=== PATIENT | male | born 1945 | race Caucasian/White ===

== ENCOUNTER → 2021-09-03 | Outpatient (CLI) | payer MEDICARE, OTHER ==
[~2021-09-03] MED LIST: ASPIRIN 32325 MG/TAB PO; TOPROL XL 50MG50 MG PO
== END ==
LOC: COL.RAD 13:21
DX: Z98.890 Other specified postprocedural states (principal); C34.11 Malignant neoplasm of upper lobe, right bronchus or lung
CPT/HCPCS: Q9967

== ENCOUNTER → 2021-12-05 | Outpatient (CLI) | payer MEDICARE, OTHER | LOC: COL.RAD 12:07 | DX: C34.90 Malignant neoplasm of unspecified part of unspecified bronchus or lung (principal); Z98.890 Other specified postprocedural states | CPT/HCPCS: Q9967 ==

== ENCOUNTER 2022-08-23 14:58 | Inpatient (IN) | payer MEDICARE, OTHER ==
[~2022-08-23] VITALS: Ht 185.4 cm; Wt 61.4 kg
[2022-08-23] VITALS (65 sets, daily range): BP systolic 67–121; BP diastolic 34–68; PULSE 31–97; TEMP 97.7–98.7; O2SAT 89–100
[2022-08-23 15:32] LABS: MEAN CELL VOLUME 105 fl (80.0-100.0); MEAN CORPUSCULAR HGB CONC 33 g/dl (33.0-37.0); RED BLOOD COUNT 2.45 M/mm3 (4.20-5.60)
[2022-08-23 15:51] LABS: ALBUMIN 3.1 gm/dL (3.4-4.8); BILIRUBIN,TOTAL 0.9 mg/dL (0.2-1.2); CALCIUM 8.6 mg/dL (8.4-10.2); CREATININE, serum 0.94 mg/dL (0.72-1.25); TOTAL PROTEIN 6.1 gm/dL (6.2-8.1)
[2022-08-23 15:56] LABS: POTASSIUM 2.7 mmol/L (3.5-4.5)
[2022-08-23 16:08] LABS: TROPONIN-I 0.155 ng/mL (0.00-0.033)
[2022-08-23 16:09] LABS: HEMATOCRIT 25.8 % (42.0-52.0); HEMOGLOBIN 8.4 g/dl (13.5-18.0); MEAN CORPUSCULAR HEMOGLOBIN 34 pg (27-31)
[2022-08-23 16:48] LABS: BAND 29 % (0-10); EOSINOPHIL 1 % (0-4); LYMPHOCYTE 3 % (20.0-51.0); METAMYELOCYTE 1 % (0-0); NEUTROPHILS 65 % (42.0-75.2)
[2022-08-23 16:49] LABS: ANISOCYTOSIS 3+; HYPOCHROMIA 2+
[2022-08-23 16:51] LABS: OVALOCYTES 2+; PLATELET ESTIMATE DECREASED (NORMAL)
[2022-08-23 17:25] LABS: PLATELET COUNT 72 K/mm3 (130-400)
[2022-08-23 18:57] LABS: MAGNESIUM 1.7 mg/dL (1.6-2.6)
[2022-08-23] MEDS ORDERED: ARICEPT 5MG PO (19:35)
[2022-08-23] MEDS ORDERED: WELLBUTRIN XL150 MG PO (19:35)
[2022-08-23] MEDS ORDERED: SYNTHROID0.05 MG/TA PO (19:35)
--- NOTE | 2022-08-23 20:56 | NUR ---
Vancomycin Initial Dosing Pharmacy Note Ordering provider: Enrique Davis MD Indication/duration: CAP x 5 days Relevant comorbidities: Lung CA LABS: WBC = 9.6, SCr = 0.94 Recommendation: Will draw troughs and follow levels. Loading dose: 1.25 grams Maintenance dose: 750 mg every 12 hours Trough goal: 15-20 ug/mL
--- NOTE | 2022-08-23 21:16 | NUR ---
This RN received call from hospitalist, Kaleigh, at 2052 requesting CAT assistance. Kaleigh reports having received call from attending nurse, Noa, that tech was unable to obtain O2 sat and BP during PM rounding. Per report, tech noted that patient had removed oxygen. This RN arrived to patient's room alongside fraternity house cook, Radha, and ED physician, Dr. King at 2054. At this time, patient was already receiving chest compressions. See CAT record and hospitalist progress note. ROSC was obtained at 2115 - patient was ultimately intubated and orders were received for transfer to ICU.
--- NOTE | 2022-08-23 21:30 | NUR ---
Patient arrives to ICU room 6 via medical bed. Patient being bagged upon arrival, RT awaiting at bedside with ventilator. Patient transferred to ICU bed via draw sheet. Initial vitals within normal limits. He continues to receive levophed drip as initiated on medical by this RN. See IV drip titrations. Patient unresponsive to verbal and painful stimuli. Unresponsive to suctioning ET tube. Eyes remain partially open even after staff attempts to close them. An 18 Fr stewart catheter and 16 Fr [place] Sump OG tube placed by this RN. Kaleigh, hospitalist, has updated family.
[2022-08-23 21:49] LABS: ARTERIAL BLD GAS O2 SATURATION 98.4 % (92-100); ARTERIAL BLD GAS TCO2 CT 11.6; ARTERIAL BLOOD GAS BASE EXCESS -22.2 (-2-2); ARTERIAL BLOOD GAS HCO3 9.9 meq/L (22-26); ARTERIAL BLOOD GAS PCO2 55.5 mmHg (35-45)
[2022-08-23 21:50] LABS: ARTERIAL BLOOD GAS PO2 198.8 mmHg (80-100); ARTERIAL BLOOD GAS pH 6.87 (7.35-7.45)
--- NOTE | 2022-08-23 22:00 | NUR ---
Patient intubated prior to arrival to ICU. Unable to perform suicide risk assessment.
--- NOTE | 2022-08-23 22:15 | NUR ---
I HAPPEN TO WALK BY THE TELE SCREEN AND SAW V-TACH ON THE SCREEN FOR PT. I QUICKLY WENT INTO THE ROOM TO CHECK ON THE PT. WHEN I GOT TO PT'S ROOM, I FOUND THE AID IN PT'S ROOM PUTTING HIS NASAL CANNULA BACK ON, PT HAD TAKEN IT OFF. PT'S O2 CHECKED. PT'S O2 SATS AT 71%. I BUMPED PT'S O2 UP TO 6L. PT'S O2 BACK UP TO LOW 90'S. RT CALLED. PT STARTED STARING OFF IN SPACE AND WAS NOT RESPONSIVE. HOSPITALIST CALLED. HOSPITALIST TO BEDSIDE. HOSPITALIST EVALUATED PT, CALLED FOR CRASH CART AND CALLED FOR CODE TEAM. CPR STARTED AT 2054, ROSC OBTAINED AT 2115. PATIENT TAKEN TO ICU.
--- NOTE | 2022-08-23 22:30 | NUR ---
LSC triple lumen placed by Dr. Chu at this time. Placement verified via chest XRAY.
[2022-08-23 23:13] LABS: MEAN CORPUSCULAR HGB CONC 29 g/dl (33.0-37.0); MEAN PLATELET VOLUME 12.6 fl (7.4-10.4); PLATELET COUNT 67 K/mm3 (130-400); RED BLOOD COUNT 2.14 M/mm3 (4.20-5.60); REDCELL DISTRIBUTION WIDTH-CV 23.4 % (11.5-14.5)
[2022-08-23 23:25] LABS: HEMATOCRIT 24.7 % (42.0-52.0); HEMOGLOBIN 7.2 g/dl (13.5-18.0); MEAN CELL VOLUME 115 fl (80.0-100.0); MEAN CORPUSCULAR HEMOGLOBIN 34 pg (27-31)
[2022-08-23 23:34] LABS: ALBUMIN 2.5 gm/dL (3.4-4.8); BILIRUBIN,TOTAL 0.8 mg/dL (0.2-1.2); CALCIUM 7.7 mg/dL (8.4-10.2); CREATININE, serum 1.19 mg/dL (0.72-1.25); POTASSIUM 4.4 mmol/L (3.5-4.5)
[2022-08-23 23:43] LABS: ARTERIAL BLD GAS O2 SATURATION 94.6 % (92-100); ARTERIAL BLD GAS TCO2 CT 13.3; ARTERIAL BLOOD GAS HCO3 12.5 meq/L (22-26); ARTERIAL BLOOD GAS PCO2 27.4 mmHg (35-45); ARTERIAL BLOOD GAS PO2 84.7 mmHg (80-100); ARTERIAL BLOOD GAS pH 7.28 (7.35-7.45)
[2022-08-23 23:54] LABS: TSH w REFLEX 1.854 uIU/mL (0.350-4.940)
[2022-08-24] VITALS (93 sets, daily range): BP systolic 72–107; BP diastolic 21–74; PULSE 53–86; TEMP 98.4; O2SAT 59–100
[2022-08-24 00:01] LABS: TROPONIN-I 0.98 ng/mL (0.00-0.033)
[2022-08-24 00:08] LABS: ANISOCYTOSIS 3+; BAND 22 % (0-10); LYMPHOCYTE 10 % (20.0-51.0); METAMYELOCYTE 1 % (0-0); NEUTROPHILS 64 % (42.0-75.2); NUCLEATED RED BLOOD CELL 3 (0-6); PLATELET ESTIMATE DECREASED (NORMAL)
[2022-08-24 00:09] LABS: BURR CELLS 2+; POIKILOCYTOSIS 2+; POLYCHROMASIA 1+
[2022-08-24 00:10] LABS: SCHISTOCYTES 1+
--- NOTE | 2022-08-24 03:47 | NUR ---
[facility] notified of patient MARITZA, 08/24/22 @ 0355. Patient not a candidate for donation. #[id number].
--- NOTE | 2022-08-24 04:00 | NUR ---
Beginning around approximately 0230, this RN was unable to obtain a consistent O2 sat despite replacing sensor several times and trying readings on the finger, forehead, and ear. At this time, BP and pulse also began to gradually decline. Kaleigh notified of the above at 0300. Orders were received to add vasopressin if needed. Levophed was titrated according to orders. At 0343, this RN noted that the patient's HR suddenly changed to a couplet rhythm - Kaleigh notified and arrived at bedside at 0345. Patient's QRS continued to widen as HR progressively dropped. Pulse check performed at 0350 by this RN and Kaleigh - no pulses detected. No heart sounds heard upon ausculation. RT notified to shut off ventilator. TOD declared at 0355. Patient's has remained at bedside since arrival to unit. Son, Gisela, notified at 0345 of condition change; he is on his way.
--- NOTE | 2022-08-24 06:43 | NUR ---
Patient's body released to home at this time.
== END 2022-08-24 06:43 | disposition expired | DRG 871 ==
LOC: COL.ER 14:58 → MEDICAL 17:18 → ICU 21:31
PROVIDERS: Emergency Medicine; Student in an Organized Health Care Education/Training Program; ADMIT Family Medicine
PROC: 02HV33Z Insertion of Infusion Device into Superior Vena Cava, Percutaneous Approach (ICD-10-PCS; principal; 2022-08-23)
PROC: 0BH17EZ Insertion of Endotracheal Airway into Trachea, Via Natural or Artificial Opening (ICD-10-PCS; 2022-08-23)
DX: A41.9 Sepsis, unspecified organism (principal); I21.4 Non-ST elevation (NSTEMI) myocardial infarction; J18.9 Pneumonia, unspecified organism; J96.90 Respiratory failure, unspecified, unspecified whether with hypoxia or hypercapnia; E87.20 Acidosis, unspecified; I95.9 Hypotension, unspecified; Z66 Do not resuscitate; Z51.5 Encounter for palliative care; E03.9 Hypothyroidism, unspecified; E87.6 Hypokalemia; F03.90 Unspecified dementia, unspecified severity, without behavioral disturbance, psychotic disturbance, mood disturbance, and anxiety; D69.6 Thrombocytopenia, unspecified; I46.9 Cardiac arrest, cause unspecified; F10.90 Alcohol use, unspecified, uncomplicated; R13.10 Dysphagia, unspecified; F32.A Depression, unspecified; Z79.890 Hormone replacement therapy; Z85.118 Personal history of other malignant neoplasm of bronchus and lung; Z87.891 Personal history of nicotine dependence; Z88.5 Allergy status to narcotic agent; Z23 Encounter for immunization
CPT/HCPCS: J0171; J0692; J2704; J3370; J3480; J7030; J7050; J7060; J7120